=== PATIENT | male | born 2000 | race Caucasian/White ===

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

== ENCOUNTER 2023-03-25 11:03 | Outpatient (CLI) | payer OTHER, SELFPAY ==
--- NOTE | ~2023-03-25 | CT_ITS ---
CT of the Abdomen and Pelvis: Indication: Abdominal pain Technique: 2.5 mm axial scans were obtained through the abdomen and pelvis following intravenous adm inistration of 100 cc of Omnipaque 350. Dose reduction technique was used on this scan by utilizing a utomated exposure control and iterative reconstruction technique. The dose-length product (DLP) was 8 36.34 mGy-cm. Findings: Scans through the lung bases are unremarkable. The liver, spleen, pancreas, gallbladder, adrenals and kidneys are within normal limits. No evidence of aortic aneurysm. No lymphadenopathy. No bowel obstruction or bowel wall thickening. There is no evidence to suggest acute appendicitis. Images through the pelvis were performed. Urinary bladder unremarkable. Prostate gland and seminal ve sicles are unremarkable. No ascites. Bilateral L5 pars interarticularis defects are present, without subluxation at this time. Impression: No acute abnormality. Bilateral L5 pars interarticularis defects. Reviewed, dictated and finalized at [facility]. Impression: No acute abnormality. Bilateral L5 pars interarticularis defects.
== END 2023-03-25 11:04 | disposition home or self-care (01) ==
PROVIDERS: PCP Family Medicine; Visit Provider Family Medicine
DX: R10.9 Unspecified abdominal pain (principal); M53.86 Other specified dorsopathies, lumbar region
CPT/HCPCS: 74177; Q9967

== ENCOUNTER 2023-05-07 13:54 | Emergency (ER) | payer OTHER, SELFPAY ==
[2023-05-07 13:57] VITALS: BP 140/76; PULSE 63; RESP 20; TEMP 36.8; O2SAT 97
--- NOTE | 2023-05-07 14:05 | ED.GENADULT ---
HPI - General Adult General Chief complaint: Unspecified Stated complaint: CO2 exposure Time Seen by Provider: 05/07/23 13:55 Source: patient Mode of arrival: ambulatory History of Present Illness HPI narrative: Patient is a 22-year-old male with no significant past medical history that presents today with carbon monoxide exposure. Patient states that the risk for herself apparently leaking where he lived and they were told by the Pulmonary that they have been exposed to for some time now prior they state they smell something weird a few weeks as well. Him and his sister both have same symptoms and complain Of a little bit of a headache and a slight cough. Onset (ago): day(s) Location: head Radiation: non-radiation Severity: mild Severity scale (1-10): 1 Relieving factors: none Exacerbating factors: none Associated symptoms: cough Treatments prior to arrival: none Related Data Home Medications Medication Instructions Recorded Confirmed bupropion HCl 300 mg 24 hr tablet, 300 mg PO DAILY 05/07/23 05/07/23 extended release escitalopram oxalate 20 mg tablet 30 mg PO DAILY 05/07/23 (Lexapro) Allergies Allergy/AdvReac Type Severity Reaction Status Date / Time No Known Allergies Allergy Verified 05/07/23 14:42 Review of Systems Review of Systems: All systems reviewed & are unremarkable except as noted in HPI and below Constitutional: Constitutional: Reports as per HPI and Reports no additional constitutional complaints Eyes: Eyes: Reports as per HPI and Reports no additional eye complaints ENT: Reports system reviewed and no additional complaints, except as documented Cardiovascular: Cardiovascular: Reports no additional cardiovascular complaints Respiratory: Respiratory: Reports no additional respiratory complaints Gastrointestinal: Gastrointestinal: Reports no additional gastrointestinal complaints Genitourinary: Genitourinary: Reports no additional male genitourinary complaints Musculoskeletal: Musculoskeletal: Reports no additional musculoskeletal complaints Integumentary/Breasts: Skin/Breast: Reports system reviewed and no additional complaints, except as docu Neurologic: Reports system reviewed and no additional complaints, except as documented Psychiatric: Psychiatric: Reports no additional psychiatric complaints Endocrine: Endocrine: Reports no additional endocrine complaints [facility] Past Medical History Medical History Anxiety Surgical History Surgical History No history of previous surgery Family History Family History Mother Family history of thyroid disease Depression Father Diabetes mellitus Family history of hypercholesterolemia Hypertension Other Family history of mental disorder Social History Social History Smoking status: Never smoker Alcohol intake: never Substance use: never Substance use type: does not use Exam Const: General: healthy appearing and no acute distress Nutritional Appearance: well nourished Orientation/consciousness: patient oriented x3 Limitations: no limitations HENMT: Head: normal to inspection Ears: external ears normal Face/Nose/Sinus: Normal external nose present Face and sinus: normal facial exam Mouth: Yes Normal oral and palatal mucosa present Teeth and gingiva: dentition normal Throat: posterior oropharynx normal Eyes: Conjunctivae: conjunctivae normal Pupils: Equal, round and reactive pupils present EOM: EOMs intact bilaterally Neck: Neck: normal visual inspection Chest: Chest palpation & inspection: normal inspection of the chest Resp: Effort & Inspection: normal respiratory effort Auscultation: clear to auscultation bilaterally Cardio: Rate: regular rate Rhythm: regular rhythm GI: Auscu
[2023-05-07 14:22] LABS: Basophils Absolute Auto 0.06 K/mm3 (0.00-0.10); Basophils Percent Auto 0.7 % (0.0-1.0); Eosinophils Absolute Auto 0.38 K/mm3 (0.02-0.50); Eosinophils Percent Auto 4.6 % (1.0-6.0); Hematocrit 42.1 % (40.0-54.0); Immature Granulocyte Absolute 0.03 K/mm3 (0.00-0.00); Immature Granulocyte Percent A 0.4 % (0.0-0.0); Lymphocytes Absolute Auto 1.35 K/mm3 (1.10-4.50); Lymphocytes Percent Auto 16.4 % (18.0-42.0); Mean Corpuscular HGB Conc 33.3 g/dL (32.0-36.0); Mean Corpuscular Hemoglobin 28.3 pg (27.0-31.0); Mean Corpuscular Volume 85.1 fL (78.0-102.0); Monocytes Absolute Auto 0.55 K/mm3 (0.10-0.90); Monocytes Percent Auto 6.7 % (2.0-11.0); Neutrophils Absolute Auto 5.9 K/mm3 (1.7-7.2); Neutrophils Percent Auto 71.2 % (50.0-70.0); Platelet Count Result 353 K/mm3 (150-420); Red Blood Count 4.95 M/mm3 (4.70-6.10); Red Cell Distribution Width 12.4 % (11.6-14.4); White Blood Count 8.2 K/mm3 (4.8-10.8)
[2023-05-07 14:24] LABS: Venous Carboxyhemoglobin 2.9 %THb (0-2.0)
[2023-05-07 14:39] LABS: Alanine Aminotransferase 29 U/L (16-63); Albumin Level 3.6 g/dL (3.4-5.0); Alkaline Phosphatase 114 U/L (46-116); Anion Gap 7 mmol/L (8-16); Aspartate Amino Transferase 20 U/L (15-37); Bilirubin,Total 0.4 mg/dL (0.00-1.00); Blood Urea Nitrogen 6 mg/dL (7-18); Calcium 8.9 mg/dL (8.5-10.1); Carbon Dioxide 30 mmol/L (21-32); Chloride 102 mmol/L (98-108); Estimated CRCL calculation 109 ml/min; Estimated Glomerular Filt Rate > 60; Glucose 94 mg/dL (70-99); Osmolality Calculated 285 mOsm/kg (285-295); Potassium 3.5 mmol/L (3.5-5.1); Sodium 139 mmol/L (136-145); Total Protein 7.1 g/dL (6.4-8.2)
[2023-05-07 15:04] VITALS: BP 140/72; PULSE 84; RESP 20; TEMP 37.1; O2SAT 98
== END 2023-05-07 15:05 | disposition home or self-care (01) ==
PROVIDERS: Emergency Provider Family Medicine; PCP Family Medicine
DX: T58.91XA Toxic effect of carbon monoxide from unspecified source, accidental (unintentional), initial encounter (principal); F41.9 Anxiety disorder, unspecified; Z79.899 Other long term (current) drug therapy
CPT/HCPCS: 36415; 80053; 82375; 85025; 99283